=== PATIENT | female | born 1970 | race Caucasian/White ===

== ENCOUNTER 2020-04-10 05:27 | Emergency (ER) | payer BC ==
[~2020-04-10] VITALS: Ht 162.6 cm; Wt 75.0 kg
--- NOTE | 2020-04-10 07:06 | NUR ---
[facility] T[facility] OPERATOR AT BEDSIDE INTERROGATING.
[2020-04-10 07:24] VITALS: BP 107/67
== END 2020-04-10 07:30 | disposition home or self-care (01) ==
LOC: ER 05:28
DX: T82.110A Breakdown (mechanical) of cardiac electrode, initial encounter (principal); Y84.0 Cardiac catheterization as the cause of abnormal reaction of the patient, or of later complication, without mention of misadventure at the time of the procedure; Y92.89 Other specified places as the place of occurrence of the external cause
CPT/HCPCS: 71045; 93005; 99283